=== PATIENT | male | born 1965 | race Caucasian/White ===

== ENCOUNTER 2019-05-17 15:01 | Inpatient (IN) | payer SELFPAY ==
[2019-05-17 15:36] LABS: #Basophils 0.1 thou/uL (0.0-0.2); #Eosinphils 0.3 thou/uL (0.0-0.7); #Lymphocytes 2.1 thou/uL (1.20-3.40); #Monocytes 0.4 thou/uL (0.11-0.59); #Neutrophils 2.1 thou/uL (1.40-6.50); %Basophils 2.3 % (0.0-1.0); %Eosinophils 5.6 % (0.0-10.0); %Lymphocytes 43.1 % (21.0-51.0); %Monocytes 7.2 % (0.0-10.0); %Neutrophils 41.8 % (42.0-75.0); Hemoglobin 11.4 g/dL (14.0-18.0); Mean Corpuscular HGB CONC 34.6 g/dL (32.0-36.0); Mean Corpuscular Hemoglobin 30.4 pg (27.0-31.0); Mean Platelet Volume 6.1 fL (7.4-10.4); Platelet Count 239 thou/uL (130-400); RBC Distribution Width 11.6 % (11.5-14.5); Red Blood Cell (RBC) Count 3.76 mill/uL (4.70-6.10); White Blood Cell (WBC) Count 4.9 thou/uL (4.8-10.8)
--- NOTE | 2019-05-17 15:53 | RAD ---
PORTABLE CHEST 1 VIEW: DATE: 05/17/2019. TIME: 3:25 p.m. HISTORY: Chest pain. FINDINGS: The heart size is normal. The lungs are expanded without focal areas of consolidation, pneumothorace s, or pleural effusions. IMPRESSION: No radiographic evidence of acute cardiopulmonary process. POS: TPC
[2019-05-17 15:58] LABS: ALT (SGPT) 21 U/L (8-55); AST (SGOT) 21 U/L (5-34); Acetaminophen Less than 6.0 mcg/mL (10.0-30.0); Albumin 4.2 g/dL (3.5-5.0); Alcohol Less than 10 mg/dL (Less than 10); Alkaline Phosphatase 54 U/L (40-150); Anion Gap 12 mmol/L (10-20); BUN (Urea Nitrogen) 8 mg/dL (8.4-25.7); Calc. Creatinine Clearance 0 mL/min (70-130); Calcium 9.3 mg/dL (7.8-10.44); Carbon Dioxide 23 mmol/L (22-29); Chloride 95 mmol/L (98-107); Estimated GFR-MDRD Greater than 90; Globulin 2.7 g/dL (2.4-3.5); Glucose 106 mg/dL (70-105); Potassium 3.8 mmol/L (3.5-5.1); Protein, Total 6.9 g/dL (6.0-8.3); Salicylate Less than 8.0 mg/dL (15.0-30.0); Sodium 126 mmol/L (136-145)
[2019-05-17 19:06] LABS: Troponin I Less than 0.010 ng/mL (< 0.028)
[2019-05-17 19:08] LABS: Amphetamine Not Detected (NotDetected); Barbiturates Screen Not Detected (NotDetected); Benzodiazepine Screen Not Detected (NotDetected); Cocaine Metabolite Screen Not Detected (NotDetected); Medtox Control Line Valid? VALID (VALID); Medtox Reader # READER 1; Methadone Not Detected (NotDetected); Methamphetamine Not Detected (NotDetected); Opiate Screen Not Detected (NotDetected); Oxycodone Screen Not Detected (NotDetected); Phencyclidine (PCP) Not Detected (NotDetected); THC/Cannabinoid Screen Not Detected (NotDetected); Tricyclic Screen Not Detected (NotDetected)
[2019-05-17 20:55] VITALS: BMI 23.6
[2019-05-17 20:55] LABS: Troponin I Less than 0.010 ng/mL (< 0.028)
[2019-05-17] MEDS ORDERED: Ondansetron PF 4 MG/2 ML Vial IVP PRN (23:07)
[2019-05-17] MEDS ORDERED: Acetaminophen 500 MG TAB PO PRN (23:07)
[2019-05-17] MEDS ORDERED: Ondansetron ODT 4 MG TAB PO PRN (23:07)
[2019-05-17] MEDS ORDERED: Sodium Chloride 0.9% 1,000 ML IV SCH (23:15)
[2019-05-17] MEDS ORDERED: risperiDONE 3 MG TAB PO SCH (23:30)
--- NOTE | 2019-05-18 03:55 | HP ---
PRIMARY CARE PROVIDER: [facility]. CHIEF COMPLAINT: Low sodium and chest pain. HISTORY OF PRESENT ILLNESS: This is a 53-year-old male, who presented to [facility] after apparently being referred to the emergency room by [facility] Services. The history is obtained after review of electronic medical records and discussions with the ER attending as the patient is unable to provide a coherent history. The patient apparently was recently released from [facility] with diagnosis of schizophrenia and delusional behavior. The patient was prescribed Risperdal and apparently had been discharged from the Behavioral Unit for approximately a week and a half following up with [facility] on the date of this evaluation. The patient states he was sleeping at his apartment when he began to experience back and chest discomfort. The patient states he had previous episodes of emesis after eating a large volume of food. The patient states he had several bouts of emesis and experienced some chest pressure and burning in his throat. The patient was treated by EMS personnel after the patient called 911, at which point the patient did receive aspirin 324 mg in addition to nitroglycerin with no specific change in symptoms. The patient initially complained of epigastric pain, rating it stabbing and burning, 4/10 in intensity. The patient denies any strong family history or personal history of coronary artery disease. The patient states he has no specific symptoms currently. The patient is requesting to eat. In the emergency room, the patient underwent EKG evaluation showing no acute process with sinus mechanism. Screening metabolic survey showed a sodium of 126 without prior values to compare. PAST MEDICAL HISTORY: 1. Schizophrenia with delusional behavior and thoughts. 2. Question of asthma. PAST SURGICAL HISTORY: Reviewed and negative. CURRENT MEDICATIONS: Risperdal 3 mg p.o. b.i.d. ALLERGIES: PENICILLIN AND AMINOQUINOLINE. FAMILY HISTORY: No inheritable disease per patient report. SOCIAL HISTORY: The patient resides in [place], [place] with his sister. No current alcohol, tobacco, or illicit drug use. Recent admission to [facility] with severe delusions and schizophrenia. REVIEW OF SYSTEMS: CONSTITUTIONAL: Negative for weight loss or gain, ability to conduct usual activities. SKIN: Negative for rash, itching. EYES: Negative for double vision, pain. ENT/MOUTH: Negative for nose bleeding, neck stiffness, pain, tenderness. CARDIOVASCULAR: Negative for palpitations, dyspnea on exertion, orthopnea. RESPIRATORY: Negative for shortness of breath, wheezing, cough, hemoptysis, fever or night sweats. GASTROINTESTINAL: Negative for poor appetite, abdominal pain, heartburn, nausea , vomiting, constipation, or diarrhea. GENITOURINARY: Negative for urgency, frequency, dysuria, nocturia. MUSCULOSKELETAL: Negative for pain, swelling. NEUROLOGIC/PSYCHIATRIC: Negative for anxiety, depression. ALLERGY/IMMUNOLOGIC: Negative for skin rash, bleeding tendency. PHYSICAL EXAMINATION: VITAL SIGNS: On admission, blood pressure 106/67, pulse 94, respiratory rate 16 , temperature 97.5 degrees Fahrenheit, O2 saturation 98% on room air. GENERAL APPEARANCE: This is a 53-year-old male, flat affect, responds to questions, in no acute distress. HEENT: Pupils are equal, round, reactive to light and accommodation. Extraocular muscles are intact. No scleral icterus. No conjunctival injection. Nares patent. OP is clear. Teeth in fair repair. NECK: Supple. No cervical adenopathy. No thyromegaly. No carotid bruits. No JVD appreciated. Cervical spine with full active and passive range of motion. No meningeal signs noted. CHEST: Lungs are clear to auscultation bilaterally. CARDIOVASCULAR: S1, S2 without noted murmur, rub, or gallop. ABDOMEN: Rounded, soft, nontender, and nondistended. Bowel sounds are positive in all 4 quadrants. There is no hepatosplenomegaly. No abdominal bruits. No rebound or guarding appreciated. EXTREMITIES: Warm and dry with fair turgor. No clubbing, cyanosis, or asymmetric edema appreciated. Pulses palpable distally at the dorsalis pedis, posterior tibial, and popliteal arteries bilaterally. Capillary refill less than 2 seconds. NEUROLOGIC: Cranial nerves 2 through 12 are grossly intact. No focal or lateralizing signs appreciated. PERTINENT LABORATORY AND X-RAY FINDINGS: Sodium 126, potassium 3.8, chloride 95 , CO2 23, BUN 8, creatinine 0.75, glucose 106, calcium 9.3. LFTs within normal limits. Troponin I negative x3. Albumin 4.2. CBC showed a white blood cell count of 4.9, hemoglobin 11, hematocrit 33, platelet count 239 with 42% neutrophils. Urine drug screen dated 05/17/2019, negative. Plasma alcohol level less than 10. Portable chest x-ray dated 05/17/2019, showed no acute cardiopulmonary process. EKG dated 05/17/2019, by my interpretation shows sinus mechanism, heart rates in the 90s. Normal R-wave progression noted in the precordial leads. Normal axis. No acute ST-T wave changes noted. ASSESSMENT AND PLAN: 1. Hyponatremia. Acute versus chronic, unknown. Initiate intravenous normal saline at 75 mL/h. Repeat sodium level in the a.m. Resume regular diet. 2. Chest pain. Suspect secondary to emesis with reflux. No current evidence to suggest acute coronary syndrome. Pepcid 20 mg b.i.d. 3. Normocytic anemia. Stable currently. No current evidence to suggest acute blood loss. Repeat CBC in the a.m. 4. Schizophrenia. Continue risperidone 3 mg b.i.d. Outpatient followup with [facility] Services. 5. Prophylaxis. SCDs while in bed. Pepcid 20 mg p.o. b.i.d. Sitter for one-on -one observation. 6. Code status is full. Surrogate medical decision maker is the patient's sister. Job ID: [id number] MTDD
[2019-05-18 06:14] LABS: Anion Gap 9 mmol/L (10-20); BUN (Urea Nitrogen) 8 mg/dL (8.4-25.7); Calc. Creatinine Clearance 142 mL/min (70-130); Calcium 8.5 mg/dL (7.8-10.44); Carbon Dioxide 22 mmol/L (22-29); Chloride 91 mmol/L (98-107); Estimated GFR-MDRD Greater than 90; Glucose 104 mg/dL (70-105); Potassium 3.6 mmol/L (3.5-5.1)
[2019-05-18 06:19] LABS: Sodium 118 mmol/L (136-145)
[2019-05-18 06:51] LABS: Hemoglobin 10.3 g/dL (14.0-18.0); Mean Corpuscular HGB CONC 34.1 g/dL (32.0-36.0); Mean Corpuscular Hemoglobin 30.3 pg (27.0-31.0); Mean Platelet Volume 6.5 fL (7.4-10.4); Platelet Count 240 thou/uL (130-400); RBC Distribution Width 11.4 % (11.5-14.5); Red Blood Cell (RBC) Count 3.38 mill/uL (4.70-6.10); White Blood Cell (WBC) Count 4.4 thou/uL (4.8-10.8)
[2019-05-18 07:05] LABS: Eosinophils 12 % (0-10); Lymphocytes 51 % (21-51); MDiff Complete? YES; Monocytes 6 % (0-10); Neutrophil 31 % (42-75); Platelet Morphology Comment Appears Adequate; Polychromasia SLIGHT = 2-3 cells (100X) (0-2/hpf)
[2019-05-18 07:52] LABS: Anion Gap 8 mmol/L (10-20); BUN (Urea Nitrogen) 8 mg/dL (8.4-25.7); Calc. Creatinine Clearance 146 mL/min (70-130); Calcium 8.4 mg/dL (7.8-10.44); Carbon Dioxide 22 mmol/L (22-29); Chloride 93 mmol/L (98-107); Estimated GFR-MDRD Greater than 90; Glucose 99 mg/dL (70-105); Potassium 3.7 mmol/L (3.5-5.1)
[2019-05-18 08:02] LABS: Sodium 119 mmol/L (136-145)
[2019-05-18] MEDS: Famotidine 20 MG TAB PO SCH ×2 (10:07→21:36)
[2019-05-18] MEDS: risperiDONE 3 MG TAB PO SCH ×2 (11:33→21:36)
--- NOTE | 2019-05-18 12:28 | CON ---
DATE OF CONSULTATION: REASON FOR CONSULTATION: Hyponatremia. HISTORY OF PRESENT ILLNESS: This is a 53-year-old gentleman, presented to the hospital and was noted to have hyponatremia. The patient is feeling weak. The patient cannot give any further history except for having chest pain. PAST MEDICAL HISTORY: Schizophrenia and asthma. PAST SURGICAL HISTORY: None. HOME MEDICATIONS: List reviewed. Hospital medications list reviewed. ALLERGIES: REVIEWED. REVIEW OF SYSTEMS: A 15-point review of system was performed, negative except for positive noted above. GENERAL: HEAD: NECK: No swelling or lumps. NOSE: No epistaxis or discharge. EYES: No diplopia or pain. RESPIRATORY: CARDIOVASCULAR: GASTROINTESTINAL: /SOLUTION SPEC: MUSCULOSKELETAL: No joint pain. NEUROPSYCHIATIC SYSTEMS: No suicidal ideation. No ideation. SKIN: Denies any rash or ulcer. CONSTITUTIONAL: No fever or chills. SOCIOECONOMIC HISTORY: No smoking, alcohol, or drug use. PHYSICAL EXAMINATION: GENERAL: The patient is awake and alert. VITAL SIGNS: Pulse 83, breathing 16, and blood pressure 106/67. GENERAL APPEARANCE AND MENTAL STATUS: Fair. HEAD/NECK: Normocephalic. Atraumatic. EYES: EOMI. No deformity. EARS: Clear. No ulcers. NOSE: Intact. No lesions. MOUTH: Clear. No discharge. THROAT: Clear. No exudate. LUNGS: Clear. No crackles. CARDIAC: S1, S2. No rub. ABDOMEN: Benign. Bowel sounds positive. GENITALIA/RECTUM: Schmitt absent. BACK/EXTREMITIES: Edema 0+. NEUROLOGICAL: Alert and motor intact. SKIN: LYMPHATICS: LABORATORY DATA: Hemoglobin is 10.3. Sodium is 119 today. IV fluids were stopped. ASSESSMENT: Hyponatremia, continue 800 mL fluid restriction. Medication based on GFR, appropriate. No indication for dialysis or hypotonic saline at this time. Overall prognosis is poor. Job ID: [id number]
[2019-05-18 15:53] LABS: Anion Gap 6 mmol/L (10-20); BUN (Urea Nitrogen) 8 mg/dL (8.4-25.7); Calc. Creatinine Clearance 127 mL/min (70-130); Calcium 8.9 mg/dL (7.8-10.44); Carbon Dioxide 22 mmol/L (22-29); Chloride 92 mmol/L (98-107); Estimated GFR-MDRD Greater than 90; Glucose 95 mg/dL (70-105)
[2019-05-18 15:59] LABS: Sodium 116 mmol/L (136-145)
[2019-05-18] MEDS ORDERED: Tolvaptan 15 MG TAB PO SCH (17:30)
--- NOTE | 2019-05-18 17:37 | PDOC.HOSPP ---
- Subjective Encounter Date: 05/18/19 Encounter Time: 10:30 Subjective: pt up in bed no complains - Objective Vital Signs & Weight: Vital Signs (12 hours) Temp Pulse Resp BP Pulse Ox 05/18/19 17:31 97.8 F 79 18 102/59 L 94 L 05/18/19 11:50 98.3 F 77 18 114/70 95 05/18/19 07:30 98.3 F 73 18 98/60 98 05/18/19 07:15 95 Weight Weight 174 lb I&O: 05/17/19 05/18/19 05/19/19 06:59 06:59 06:59 Intake Total 722 Output Total 300 Balance 422 Result Diagrams: 05/18/19 05:15 05/18/19 15:19 ROS - Review of Systems Respiratory: denies: cough, dry, shortness of breath, hemoptysis, SOB with excertion, pleuritic pain, sputum, wheezing, other Cardiovascular: denies: chest pain, palpitations, orthopnea, paroxysmal noc. dyspnea, edema, light headedness, other Gastrointestinal: denies: nausea, vomitting, abdominal pain, diarrhea, constipation, melena, hematochezia, other - Medication Medications: Active Medications Generic Name Dose Route Start Last Admin Trade Name Freq PRN Reason Stop Dose Admin Famotidine 20 mg 05/18/19 09:00 05/18/19 10:07 Pepcid PO 20 mg BID LEIV Administration Ondansetron HCl 4 mg 05/17/19 23:07 05/17/19 23:43 Zofran IVP 4 mg Q6H PRN Administration Nausea/Vomiting Risperidone 3 mg 05/18/19 09:00 05/18/19 11:33 Risperidone PO 3 mg BID LEVI Administration - Exam Neck: negative: supple, symmetric, no JVD, no thyromegaly, no lymphadenopathy, no carotid bruit, JVD Heart: negative: RRR, no murmur, no gallops, no rubs, normal peripheral pulses, irregular, diminshed peripheral pulses, murmur present, II/IV, III/IV Respiratory: negative: CTAB, no wheezes, no rales, no ronchi, normal chest expansion, no tachypnea, normal percussion, rales, rhonchi, tachypneic, wheezes Gastrointestinal: negative: soft, non-tender, non-distended, normal bowel sounds , no palpable masses, no hepatomegaly, no splenomegaly, no bruit, no guarding, no rigidity, tender to palpation, distended, diminished bowl sounds, voluntary guarding Extremities: negative: no cyanosis, no clubbing, no edema, 1+ LE edema, 2+ LE edema, clubbing Hosp A/P (1) Hyponatremia Code(s): E87.1 - HYPO-OSMOLALITY AND HYPONATREMIA Status: Acute (2) Anemia Code(s): D64.9 - ANEMIA, UNSPECIFIED Status: Acute (3) Schizo-affective schizophrenia Code(s): F25.0 - SCHIZOAFFECTIVE DISORDER, BIPOLAR TYPE Status: Acute - Plan per labs 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 nephrology consulted. will check labs later today. Pt is oriented x3. will check iron studies.
[2019-05-18 17:57] LABS: ALT (SGPT) 16 U/L (8-55); AST (SGOT) 24 U/L (5-34); Albumin 3.8 g/dL (3.5-5.0); Alkaline Phosphatase 53 U/L (40-150); Bilirubin, Direct 0.4 mg/dL (0.1-0.3); Bilirubin, Total 0.9 mg/dL (0.2-1.2); Protein, Total 6.2 g/dL (6.0-8.3)
[2019-05-18 21:37] LABS: Anion Gap 10 mmol/L (10-20); BUN (Urea Nitrogen) 7 mg/dL (8.4-25.7); Calc. Creatinine Clearance 129 mL/min (70-130); Calcium 9.1 mg/dL (7.8-10.44); Carbon Dioxide 22 mmol/L (22-29); Chloride 94 mmol/L (98-107); Estimated GFR-MDRD Greater than 90; Glucose 99 mg/dL (70-105); Sodium 122 mmol/L (136-145)
[2019-05-19 05:01] LABS: #Basophils 0.1 thou/uL (0.0-0.2); #Eosinphils 0.2 thou/uL (0.0-0.7); #Lymphocytes 1.4 thou/uL (1.20-3.40); #Monocytes 0.4 thou/uL (0.11-0.59); #Neutrophils 1.9 thou/uL (1.40-6.50); %Basophils 1.6 % (0.0-1.0); %Eosinophils 4.9 % (0.0-10.0); %Lymphocytes 35.8 % (21.0-51.0); %Monocytes 9.4 % (0.0-10.0); %Neutrophils 48.3 % (42.0-75.0); Hemoglobin 11.6 g/dL (14.0-18.0); Mean Corpuscular HGB CONC 34.8 g/dL (32.0-36.0); Mean Corpuscular Volume 88.9 fL (78.0-98.0); Mean Platelet Volume 6.6 fL (7.4-10.4); Platelet Count 241 thou/uL (130-400); RBC Distribution Width 11.6 % (11.5-14.5); Red Blood Cell (RBC) Count 3.76 mill/uL (4.70-6.10); Reticulocyte Count 0.8 % (0.5-1.5)
[2019-05-19 05:24] LABS: Anion Gap 10 mmol/L (10-20); BUN (Urea Nitrogen) 7 mg/dL (8.4-25.7); Calc. Creatinine Clearance 123 mL/min (70-130); Calcium 9.6 mg/dL (7.8-10.44); Carbon Dioxide 23 mmol/L (22-29); Chloride 99 mmol/L (98-107); Estimated GFR-MDRD Greater than 90; Glucose 98 mg/dL (70-105); Iron 69 ug/dL (65-175); Iron Binding Capacity, Total 273 mcg/dL (261-462); Potassium 4.3 mmol/L (3.5-5.1); Sodium 128 mmol/L (136-145)
[2019-05-19] MEDS ORDERED: Diabetic Tussin 200 MG/10 ML UDCUP PO PRN (08:22)
[2019-05-19] MEDS ORDERED: Sodium Chloride 0.65% Nasal 44 ML BOT EA NARE PRN (08:22)
[2019-05-19] MEDS ORDERED: Zolpidem Tartrate 5 MG TAB PO PRN (08:22)
[2019-05-19] MEDS ORDERED: hydrALAZINE 20 MG/ML VIAL SLOW IVP PRN (08:22)
[2019-05-19] MEDS ORDERED: Senokot S 8.6-50 MG TAB PO PRN (08:22)
[2019-05-19] MEDS ORDERED: Loperamide HCl 2 MG CAP PO PRN (08:22)
[2019-05-19] MEDS: risperiDONE 3 MG TAB PO SCH (09:50)
[2019-05-19] MEDS: Famotidine 20 MG TAB PO SCH ×2 (09:50→20:32)
--- NOTE | 2019-05-19 12:08 | PDOC.HOSPP ---
- Subjective Encounter Date: 05/19/19 Encounter Time: 08:30 Subjective: Patient seen and examined. No new complaints. No overnight events - Objective Vital Signs & Weight: Vital Signs (12 hours) Temp Pulse Resp BP BP Pulse Ox 05/19/19 07:45 95 05/19/19 07:13 98.5 F 86 18 91/56 L 95 05/19/19 06:41 90/53 L 05/19/19 06:30 86/50 L 05/19/19 04:00 98.0 F 88 16 92/54 L 98 05/19/19 01:09 84 16 Weight Weight 164 lb 3.2 oz I&O: 05/18/19 05/19/19 05/20/19 06:59 06:59 06:59 Intake Total 722 120 Output Total 300 4120 Balance 422 -4000 Result Diagrams: 05/19/19 04:30 05/19/19 04:30 EKG Reviewed by me: Yes ROS - Review of Systems Constitutional: denies: fever, chills, sweats, weakness, malaise, other Eyes: denies: pain, vision change, conjunctivae inflammation, eyelid inflammation, redness, other ENT: denies: ear pain, ear discharge, nose pain, nose discharge, nose congestion , mouth pain, mouth swelling, throat pain, throat swelling, other Respiratory: denies: cough, dry, shortness of breath, hemoptysis, SOB with excertion, pleuritic pain, sputum, wheezing, other Cardiovascular: denies: chest pain, palpitations, orthopnea, paroxysmal noc. dyspnea, edema, light headedness, other Gastrointestinal: denies: nausea, vomitting, abdominal pain, diarrhea, constipation, melena, hematochezia, other Genitourinary: denies: dysuria, frequency, incontinence, hematuria, retention, other Musculoskeletal: denies: neck pain, shoulder pain, arm pain, back pain, hand pain, leg pain, foot pain, other Skin: denies: rash, lesions, alessia, bruising, other - Medication Medications: Active Medications Generic Name Dose Route Start Last Admin Trade Name Freq PRN Reason Stop Dose Admin Famotidine 20 mg 05/18/19 09:00 05/19/19 09:50 Pepcid PO 20 mg BID LEVI Administration Ondansetron HCl 4 mg 05/17/19 23:07 05/17/19 23:43 Zofran IVP 4 mg Q6H PRN Administration Nausea/Vomiting Risperidone 3 mg 05/18/19 09:00 05/19/19 09:50 Risperidone PO 3 mg BID LEVI Administration - Exam NAD, awake alert Eye: PERRL, anicteric sclera ENT: normocephalic atraumatic, no oropharyngeal lesions Neck: supple, symmetric, no JVD Heart: RRR, no murmur, no gallops, no rubs Respiratory: CTAB, no wheezes, no rales, no ronchi Gastrointestinal: soft, non-tender, non-distended, normal bowel sounds Extremities: no cyanosis, no clubbing, no edema Skin: normal turgor, no lesions, no rashes Neurological: CN's grossly intact, normal sensation to touch, no focal deficits Musculoskeletal: normal tone, normal strength, no muscle wasting Psychiatric: normal affect, normal behavior Hosp A/P (1) Hyponatremia Code(s): E87.1 - HYPO-OSMOLALITY AND HYPONATREMIA Status: Acute (2) Schizo-affective schizophrenia Code(s): F25.0 - SCHIZOAFFECTIVE DISORDER, BIPOLAR TYPE Status: Acute (3) Anemia, normocytic normochromic Code(s): D64.9 - ANEMIA, UNSPECIFIED Status: Chronic - Plan old records reviewed/req fluid restriction discussed with pt medication reviewed as above symptomatic treatment dc tele transfer to medical [facility] tomorrow expecting discharge soon
[2019-05-19 14:00] LABS: Anion Gap 10 mmol/L (10-20); BUN (Urea Nitrogen) 8 mg/dL (8.4-25.7); Calc. Creatinine Clearance 112 mL/min (70-130); Calcium 9.8 mg/dL (7.8-10.44); Carbon Dioxide 24 mmol/L (22-29); Chloride 100 mmol/L (98-107); Estimated GFR-MDRD Greater than 90; Glucose 94 mg/dL (70-105); Sodium 130 mmol/L (136-145)
--- NOTE | 2019-05-19 16:24 | PRG ---
DATE OF SERVICE: 05/19/2019 SUBJECTIVE: A 53-year-old gentleman, being seen for hyponatremia. The patient denies any nausea, vomiting, or chest pain. OBJECTIVE: GENERAL: The patient is awake and alert. VITAL SIGNS: Afebrile, pulse 110, breathing 16, blood pressure 91/58. GENERAL APPEARANCE AND MENTAL STATUS: Fair. HEAD/NECK: Normocephalic. Atraumatic. EYES: EOMI. No deformity. EARS: Clear. No ulcers. NOSE: Intact. No lesions. MOUTH: Clear. No discharge. THROAT: Clear. No exudate. LUNGS: Clear. No crackles. CARDIAC: S1, S2. No rub. ABDOMEN: Benign. Bowel sounds positive. GENITALIA/RECTUM: Schmitt absent. BACK/EXTREMITIES: Edema 0+. NEUROLOGICAL: Alert and motor intact. SKIN: LYMPHATICS: LABORATORY DATA: Show sodium is 130, creatinine 0.81. ASSESSMENT AND RECOMMENDATION: 1. Chronic kidney disease, stage 1, stable. 2. Hyponatremia, improved. 3. Anemia, stable. 4. Medication based on GFR, appropriate. Job ID: [id number]
[2019-05-19] MEDS: risperiDONE 1 MG TAB PO SCH (20:32)
[2019-05-20 06:16] LABS: Anion Gap 11 mmol/L (10-20); BUN (Urea Nitrogen) 12 mg/dL (8.4-25.7); Calc. Creatinine Clearance 110 mL/min (70-130); Calcium 9.4 mg/dL (7.8-10.44); Carbon Dioxide 23 mmol/L (22-29); Chloride 101 mmol/L (98-107); Estimated GFR-MDRD Greater than 90; Glucose 104 mg/dL (70-105); Potassium 4.3 mmol/L (3.5-5.1); Sodium 131 mmol/L (136-145)
[2019-05-20 07:14] VITALS: BP 94/65; TEMP 98.1
[2019-05-20] MEDS: risperiDONE 1 MG TAB PO SCH (07:48)
[2019-05-20] MEDS: Famotidine 20 MG TAB PO SCH (07:48)
--- NOTE | 2019-05-20 10:59 | PRG ---
DATE OF SERVICE: 05/20/2019 SUBJECTIVE: A 53-year-old gentleman being seen for hyponatremia. The patient denies any nausea, vomiting, or chest pain. OBJECTIVE: CONSTITUTIONAL: The patient is awake and alert. VITAL SIGNS: Afebrile, pulse 92, breathing 16, and blood pressure 100/66. GENERAL APPEARANCE AND MENTAL STATUS: Fair. HEAD/NECK: Normocephalic. Atraumatic. EYES: EOMI. No deformity. EARS: Clear. No ulcers. NOSE: Intact. No lesions. MOUTH: Clear. No discharge. THROAT: Clear. No exudate. LUNGS: Clear. No crackles. CARDIAC: S1, S2. No rub. ABDOMEN: Benign. Bowel sounds positive. GENITALIA/RECTUM: Schmitt absent. BACK/EXTREMITIES: Edema 0+. NEUROLOGICAL: Alert and motor intact. SKIN: LYMPHATICS: LABORATORY DATA: Labs reviewed. ASSESSMENT AND PLAN: Stage 1 chronic kidney disease stable. Hyponatremia, resolved. Syndrome of inappropriate antidiuretic hormone secretion, resolved. Hypertension, stable. I will sign off on this patient. Please reconsult as needed. Job ID: [id number]
--- NOTE | 2019-05-20 10:59 | DIS ---
DATE OF ADMISSION: 05/17/2019 DATE OF DISCHARGE: 05/20/2019 PRIMARY CARE PHYSICIAN: [facility] Call admission. DISCHARGE DISPOSITION: Home. PRIMARY DISCHARGE DIAGNOSIS: Hyponatremia. SECONDARY DISCHARGE DIAGNOSIS: Affective schizophrenia, normocytic normochromic anemia. PRIMARY PROCEDURE/OPERATION: None. RADIOLOGICAL INVESTIGATION: Chest x-ray normal. SIGNIFICANT LABORATORY DATA: WBC 4.0, hemoglobin 11.6, platelets 241. Sodium 131, creatinine 0.82, calcium 9.4, ferritin 321. LFT normal. Urinalysis showed urine sodium 182. Urine osmolality 814. Urine drug screen negative. Serum drug screen negative. DISCHARGE MEDICATIONS: The patient will continue his risperidone 3 mg p.o. b.i.d. CONTRAINDICATION: None. CODE STATUS: Full code. INPATIENT DRILLER PORTABLE: Dr. Ness, Nephrology was consulted for hyponatremia. TEST RESULTS PENDING ON DISCHARGE: None. ALLERGIES: PENICILLIN AND QUINOLINE. DISCHARGE PLAN: Posthospital, the patient will follow up with primary care physician in 1 week. The patient will make appointment with Dr. Ness for monitoring sodium. HOSPITAL COURSE: A 53-year-old male with above-mentioned medical problem, who was admitted by Dr. Higuera. Please see his H and P for further details. The patient was admitted for severe hyponatremia. His sodium was 116. The patient also reported chest pain in the emergency room, but his EKG was normal and his description of chest pain was also nonanginal. We kept this patient in the telemetry floor. We ruled out acute coronary syndrome. For hyponatremia, we initially treated with normal saline and we repeatedly monitored sodium and sodium improved to 131 by the time of discharge. While in hospital, Dr. Ness was consulted for hyponatremia and he gave him one dose of tolvaptan and with that, sodium has significant improvement. His sodium is low because he has excessive fluid intake because of his habit and that is why we discussed with the patient about fluid restriction. 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 The patient is up to his normal level. I have seen and examined the patient at bedside today. PHYSICAL EXAMINATION: VITAL SIGNS: Currently, temperature 98.1, pulse 92, respiratory rate 14, saturation 97% on room air, blood pressure 94/65, weight 162 pounds. GENERAL: The patient is currently alert, awake, in no obvious acute distress. HEENT: Head; normocephalic, atraumatic. Eyes; pupils are round, reactive to light. Extraocular muscle intact. ENT; oropharynx within normal limits. Moist mucous membranes. NECK: Supple. No JVD. No thyromegaly. LUNGS: Clear to auscultation without any rhonchi or rales. CARDIAC: S1 and S2. Regular without any murmur. ABDOMEN: Soft and benign. NEUROLOGIC: Intact. The patient is medically stable for discharge. Job ID: [id number]
--- NOTE | 2019-05-20 11:36 | PDOC.HOSPP ---
- Subjective Encounter Date: 05/20/19 Encounter Time: 08:45 Subjective: Patient seen and examined. No new complaints. No overnight events - Objective Vital Signs & Weight: Vital Signs (12 hours) Temp Pulse Resp BP Pulse Ox 05/20/19 08:00 97 05/20/19 07:12 98.1 F 92 14 94/65 97 05/20/19 00:18 84 16 100/66 98 Weight Weight 162 lb 8 oz I&O: 05/19/19 05/20/19 05/21/19 06:59 06:59 06:59 Intake Total 120 300 240 Output Total 4120 350 Balance -4000 -50 240 Result Diagrams: 05/19/19 04:30 05/20/19 05:15 ROS - Review of Systems Eyes: denies: pain, vision change, conjunctivae inflammation, eyelid inflammation, redness, other ENT: denies: ear pain, ear discharge, nose pain, nose discharge, nose congestion , mouth pain, mouth swelling, throat pain, throat swelling, other Respiratory: denies: cough, dry, shortness of breath, hemoptysis, SOB with excertion, pleuritic pain, sputum, wheezing, other Cardiovascular: denies: chest pain, palpitations, orthopnea, paroxysmal noc. dyspnea, edema, light headedness, other Gastrointestinal: denies: nausea, vomitting, abdominal pain, diarrhea, constipation, melena, hematochezia, other Genitourinary: denies: dysuria, frequency, incontinence, hematuria, retention, other Musculoskeletal: denies: neck pain, shoulder pain, arm pain, back pain, hand pain, leg pain, foot pain, other Skin: denies: rash, lesions, alessia, bruising, other - Medication Medications: Active Medications Generic Name Dose Route Start Last Admin Trade Name Freq PRN Reason Stop Dose Admin Famotidine 20 mg 05/18/19 09:00 05/20/19 07:48 Pepcid PO 20 mg BID LEVI Administration Ondansetron HCl 4 mg 05/17/19 23:07 05/17/19 23:43 Zofran IVP 4 mg Q6H PRN Administration Nausea/Vomiting Risperidone 3 mg 05/19/19 21:00 05/20/19 07:48 Risperidone PO 3 mg BID LEVI Administration - Exam NAD, awake alert Eye: PERRL, anicteric sclera ENT: normocephalic atraumatic, no oropharyngeal lesions Neck: supple, symmetric, no JVD Heart: RRR, no murmur, no gallops Respiratory: CTAB, no wheezes, no rales, no ronchi Gastrointestinal: soft, non-tender, non-distended, normal bowel sounds Extremities: no cyanosis, no clubbing, no edema Skin: normal turgor, no lesions, no rashes Neurological: CN's grossly intact, normal sensation to touch, no focal deficits , no new deficit Musculoskeletal: normal tone, normal strength, no muscle wasting Psychiatric: normal affect, normal behavior Hosp A/P (1) Hyponatremia Code(s): E87.1 - HYPO-OSMOLALITY AND HYPONATREMIA Status: Acute (2) Schizo-affective schizophrenia Code(s): F25.0 - SCHIZOAFFECTIVE DISORDER, BIPOLAR TYPE Status: Acute (3) Anemia, normocytic normochromic Code(s): D64.9 - ANEMIA, UNSPECIFIED Status: Chronic - Plan old records reviewed/req fluid restriction discussed with pt medication reviewed as above symptomatic treatment [facility] evaluation and then discharge
== END 2019-05-20 14:10 | disposition home or self-care (01) | DRG 645 ==
LOC: ERS 15:01 → 2NO 18:00 → T4-A 05-19 18:39
PROVIDERS: ADMIT Family Medicine; ATTEND Family Medicine
DX: E22.2 Syndrome of inappropriate secretion of antidiuretic hormone (principal); F25.0 Schizoaffective disorder, bipolar type; K21.9 Gastro-esophageal reflux disease without esophagitis; N18.1 Chronic kidney disease, stage 1; R63.1 Polydipsia; D63.1 Anemia in chronic kidney disease; Z88.8 Allergy status to other drugs, medicaments and biological substances; Z88.0 Allergy status to penicillin; Z79.899 Other long term (current) drug therapy
CPT/HCPCS: 36415; 71045; 80048; 80053; 80076; 80306; 80307; 82533; 82550; 82728; 83540; 83550; 83930; 83935; 84300; 84443; 84484; 85007; 85025; 85027; 85046; 93005; J2405